=== PATIENT | male | born 1955 | race Caucasian/White ===

== ENCOUNTER → 2020-08-02 | Outpatient (CLI) | payer MEDICARE ==
[~2020-08-02] MED LIST: FELDENE10 MG PO; FLEXERIL 10 MG10 MG PO; Voltaren Gel 1% TOP
== END ==
LOC: RAD 10:35
DX: M25.552 Pain in left hip (principal); M25.551 Pain in right hip; M54.5 Low back pain; M47.816 Spondylosis without myelopathy or radiculopathy, lumbar region
CPT/HCPCS: 72110; 73522

== ENCOUNTER → 2020-11-06 | Outpatient (CLI) | payer MEDICARE, OTHER | LOC: KOH-I 14:07 | DX: C61 Malignant neoplasm of prostate (principal); M54.5 Low back pain; M47.816 Spondylosis without myelopathy or radiculopathy, lumbar region; M48.061 Spinal stenosis, lumbar region without neurogenic claudication; G95.29 Other cord compression | CPT/HCPCS: 72148 ==

== ENCOUNTER → 2021-03-24 | Outpatient (CLI) | payer MEDICARE | LOC: EXRD 11:31 | DX: M79.622 Pain in left upper arm (principal) | CPT/HCPCS: 73030; 73060 ==